=== PATIENT | male | born 1955 | race African-American/Black ===

== ENCOUNTER 2019-11-06 10:38 | Inpatient (IN) | payer OTHER ==
[~2019-11-06] VITALS: Ht 175.3 cm; Wt 106.6 kg
[2019-11-06] MEDS ORDERED: BLOOD SUGAR DIAGNOSTIC 1 EACH STRIP IN ONE (14:00)
[2019-11-06] MEDS ORDERED: ZOLPIDEM TARTRATE 10 MG TABLET PO PRN (14:00)
[2019-11-06] MEDS ORDERED: BENZTROPINE MESYLATE (1 MG) 1 MG TABLET PO PRN (14:00)
[2019-11-06] MEDS ORDERED: MAG HYDROX/AL HYDROX/SIMETH 30 ML UDC PO PRN (14:00)
[2019-11-06] MEDS ORDERED: IBUPROFEN 200 MG TABLET PO PRN (14:00)
[2019-11-06] MEDS ORDERED: ACETAMINOPHEN 325 MG TABLET PO PRN (14:00)
[2019-11-06] MEDS ORDERED: LORAZEPAM 0.5 MG TABLET PO PRN (14:00)
[2019-11-06] MEDS ORDERED: MAGNESIUM HYDROXIDE 30 ML UDC PO PRN (14:00)
[2019-11-06] MEDS ORDERED: PROPRANOLOL HCL 10 MG TABLET PO PRN (14:00)
--- NOTE | 2019-11-06 15:00 | NUR ---
RN ADMITTING NOTES ADMITTED A 64 Y/O MALE TO UNIT AMBULATORY. A/O X3. ABLE TO MAKE NEEDS KNOWN, NO SIGNS OF DISTRESS NOTED AT THIS TIME. PATIENT ORIENTED TO ROOM, UNIT AND STAFF. ON ROOM AIR, TOLERATING WELL. V/S TAKEN, STABLE AND RECORDED. REFUSED PHYSICAL ASSESSMENT AND PICTURES. ALSO REFUSED BLOOD SUGAR CHECK. SAFETY MEASURES IN PLACE, BED PLACE IN LOWEST LOCKED POSITION WITH SIDE RAILS UP X2. CALL LIGHT WITHIN REACH. WILL CONTINUE TO MONITOR.
[2019-11-06] MEDS ORDERED: HYDR-3980 MT (15:15)
[2019-11-06] MEDS ORDERED: OMEG100036 PO (15:15)
[2019-11-06] MEDS ORDERED: HYDR25TA4 PO (15:15)
[2019-11-06] MEDS ORDERED: CLON1TAB12 PO (15:15)
[2019-11-06] MEDS ORDERED: AMLO5TAB9 PO (15:15)
[2019-11-06] MEDS ORDERED: ASPI-992 PO (15:15)
--- NOTE | 2019-11-06 15:20 | NUR ---
RN NOTES PATIENT WAS TESTED FOR COVID 19, SPECIMEN SENT TO LAB.
--- NOTE | 2019-11-06 15:20 | NUR ---
RN NOTES PATIENT HAVE ALL HIS BELONGINGS AT BEDSIDE, EXPLAINED THAT HOSPITAL AND HOSPITAL STAFF IS NOT RESPONSIBLE FOR LOSS OF PERSONAL CLOTHING AND OR VALUABLES. PATIENT AGREED. CHARGE NURSE MADE AWARE. WILL CONTINUE TO MONITOR.
[2019-11-06 16:00] VITALS: BP 138/72
[2019-11-06 16:03] LABS: CALCIUM, SERUM 9.4 mg/dL (8.5-10.1); CREATININE 1.1 mg/dL (0.6-1.3); POTASSIUM 3.1 mmol/L (3.5-5.1)
[2019-11-06 16:25] LABS: BASOPHILS # (AUTO) 0.1 /CMM (0.0-0.2); BASOPHILS % (AUTO) 1.1 % (0.0-2.0); EOSINOPHILS % (AUTO) 5.3 % (0.0-6.0); HEMATOCRIT 37 % (39-51); HEMOGLOBIN 11.7 g/dL (13.5-17.5); LYMPHOCYTES # (AUTO) 1.6 /CMM (0.8-4.8); LYMPHOCYTES % (AUTO) 26.8 % (20.0-44.0); MEAN CORPUSCULAR HGB CONC 32 g/dl (31.0-36.0); MEAN CORPUSCULAR VOLUME 95 fL (80-96); MONOCYTES # (AUTO) 0.4 /CMM (0.1-1.30); MONOCYTES % (AUTO) 6.7 % (2.0-12.0); NEUTROPHILS # (AUTO) 3.6 /CMM (1.8-8.9); NEUTROPHILS % (AUTO) 60.1 % (43.0-81.0); PLATELET COUNT (AUTO) 189 /CMM (150-450); RED BLOOD CELL COUNT(AUTO) 3.89 MIL/uL (4.5-6.0)
--- NOTE | 2019-11-06 20:07 | NUR ---
GPS/OCCUPATIONAL THERAPY AIDE NURSING NOTES: PT. IN HIS ROOM AWAKE. NO DISTRESS OR AGITATION NOTED. QUIET AND CALM. COOPERATIVE. NO C/O PAIN OR DISCOMFORT. SAFETY ENVIRONMENT OBSERVED AT ALL TIMES. WILL CONTINUE TO MONITOR Q 15 MIN FOR SAFETY AND BEHAVIOR.
[2019-11-06 21:05] VITALS: BP 153/96
[2019-11-06 21:26] LABS: C-REACTIVE PROTEIN 2.5 mg/dL (0.0-0.9)
[2019-11-06 21:48] LABS: THYROID STIMULATING HORMONE 1.388 uIU/mL (0.358-3.74)
[2019-11-07] MEDS: FISH OIL PO SCH (08:00)
[2019-11-07] MEDS: HCTZ 25 MG PO SCH (08:00)
[2019-11-07] MEDS: AMLODIPINE 5 MG PO SCH (08:00)
[2019-11-07] MEDS: ASPIRIN 325 MG PO SCH (08:00)
--- NOTE | 2019-11-07 08:54 | NUR ---
GPS RN NOTE: PT LEFT THE UNIT TO MS DEB
--- NOTE | 2019-11-07 09:00 | NUR ---
MS RN NOTES RECEIVED PATIENT FROM GPS. ALERT AND ORIENTED X4. NO SOB. AMBULATORY WITH STEADY GAIT. DENIES ANY C/O PAIN NOR DISCOMFORT AT THIS TIME. FOR CLINICAL TRIALS. NO BEHAVIOR OBSERVED. ORIENTED TO ROOM, CALL LIGHT, ROOMMATE AND UNIT. BED IN LOWEST POSITION ,LOCKED. CALL LIGHT WITHIN REACH.
[2019-11-07 16:00] VITALS: BP 140/76
--- NOTE | 2019-11-07 19:00 | NUR ---
MS RN NOTES PATIENT IN BED RESTING COMFORTABLY. NO SOB. AMBULATORY WITH STEADY GAIT USING ROLLATOR. DENIES ANY C/O PAIN NOR DISCOMFORT AT THIS TIME. REMAIN ON CLINICAL TRIALS. NO BEHAVIOR OBSERVED. BED IN LOWEST POSITION ,LOCKED. CALL LIGHT WITHIN REACH. IN NO APPARENT DISTRESS.
--- NOTE | 2019-11-07 19:15 | NUR ---
MS RN OPENING NOTES: RECEIVED PATIENT IN THE WHEELCHAIR, A/O X4, PATIENT IS HAPPY AND VERY TALKATIVE. REMINDED PATIENT TO TELL STAFF BEFORE GOING DOWNSTAIRS, PATIENT VERBALIZED UNDERSTANDING.
--- NOTE | 2019-11-07 19:58 | NUR ---
PATIENT WENT DOWN ON THE WHEELCHAIR ACCOMPANIED BY THE ROOMMATE.
[2019-11-07 20:00] VITALS: BP 118/63
--- NOTE | 2019-11-07 21:10 | NUR ---
PER EDWIGE KLINE PATIENT CAME BACK FROM DOWNSTAIRS FEW MINUTES AGO.
--- NOTE | 2019-11-08 05:06 | NUR ---
PATIENT WENT DOWNSTAIRS BY WHEELCHAIR ACCOMPANIED BY HIS ROOMMATE.
--- NOTE | 2019-11-08 05:30 | NUR ---
PATIENT CAME BACK FROM DOWNSTAIRS.
--- NOTE | 2019-11-08 06:43 | NUR ---
MS RN CLOSING NOTES: PATIENT IN BED, AWAKE A/O X4. NO SOB NOTED. NO COMPLAIN OF PAIN. RESTED THROUGHOUT THE NIGHT. CALL LIGHT WITHIN REACH. BED IN LOWEST AND LOCKED POSITION.
[2019-11-08 08:00] VITALS: BP 116/63
--- NOTE | 2019-11-08 08:00 | NUR ---
MS RN OPENING NOTES Received Patient awake and resting in bed. A/O x 4. VS stable with no acute distress. Breathing even and unlabored on room air with no respiratory distress. Denies pain. No signs and symptoms of pain. No IV access, MD aware. Safety precautions in place. Bed locked and set to lowest position with side rails x 2 up. All needs rendered at this time. Call light within reach. Will continue to monitor.
[2019-11-08] MEDS: ASPIRIN 325 MG PO SCH (08:50)
[2019-11-08] MEDS: AMLODIPINE 5 MG PO SCH (08:50)
[2019-11-08] MEDS: FISH OIL PO SCH (08:50)
[2019-11-08] MEDS: HCTZ 25 MG PO SCH (08:51)
[2019-11-08 16:00] VITALS: BP 135/97
--- NOTE | 2019-11-08 19:50 | NUR ---
MS RN CLOSING NOTES Patient awake and resting in bed. A/O x 4. VS stable with no acute distress. Breathing even and unlabored on room air with no respiratory distress. Denies pain. No signs and symptoms of pain. No IV access, MD aware. Safety precautions in place. Bed locked and set to lowest position with side rails x 2 up. All needs rendered at this time. Call light within reach. Will endorse plan of care to oncoming shift.
--- NOTE | 2019-11-08 20:00 | NUR ---
MS/RN OPENING NOTE Patient A/O x4. PERRLA. VSS. Patient denies pain. Breathing even, clear, unlabored. On room air. No SOB or acute distress. Abdomen round, soft, non-tender. Appetite is adequate. Able to move extremities well, strength adequate. Skin warm, pink, dry, appropriate for ethnicity. Bed in low position, wheels locked, side rails up x2, call light within reach.
[2019-11-08 20:44] VITALS: BP 138/74
[2019-11-09 00:28] VITALS: BP 119/95
--- NOTE | 2019-11-09 06:10 | NUR ---
MS/RN CLOSING NOTE Patient asleep in bed. A/O x4. Breathing even, clear, unlabored. No signs of SOB or acute distress. On room air. Patient denies pain. Skin warm, pink, dry, appropriate for ethnicity. Bed in low position, wheels locked, side rails up x2, call light within reach. Will endorse to oncoming nurse.
--- NOTE | 2019-11-09 07:58 | NUR ---
MS RN OPENING NOTES Received Patient awake and resting in bed. A/O x 4. VS stable with no acute distress. Breathing even and unlabored on room air with no respiratory distress. Denies pain. No signs and symptoms of pain. No IV access, MD aware. Safety precautions in place. Bed locked and set to lowest position with side rails x 2 up. All needs rendered at this time. Call light within reach. Will continue to monitor. Addendum: 11/09/19 at 0827 by FRANKLIN LATIF RN DISREGARD NOTE, WRONG USER
[2019-11-09 08:06] VITALS: BP 134/86
[2019-11-09] MEDS: AMLODIPINE 5 MG PO SCH (08:18)
[2019-11-09] MEDS: ASPIRIN 325 MG PO SCH (08:19)
[2019-11-09] MEDS: HCTZ 25 MG PO SCH (08:19)
[2019-11-09] MEDS: FISH OIL PO SCH (08:19)
[2019-11-09 16:00] VITALS: BP 135/93
--- NOTE | 2019-11-09 16:34 | NUR ---
MS RN NOTES Patient refused Risperdal 1mg PO. Patient stated "What is happening to me is real! I don't need to take an antipsychotic!" Explained risks and benefits to Patient. Patient still refused.
[2019-11-09 19:53] VITALS: BP 145/90
--- NOTE | 2019-11-09 20:00 | NUR ---
MS/RN OPENING NOTE Patient A/O x4, very pleasant. Breathing even, unlabored, clear bilaterally. Skin warm, pink, dry, appropriate for ethnicity. No signs of SOB or acute distress. Pt denies pain at this time. Able to move extremities well, ambulates via wheelchair. No IV access , MD aware. Bed in low position, wheels locked, side rails up x2, call light within reach.
[2019-11-09 20:43] VITALS: BP 145/90
--- NOTE | 2019-11-10 06:48 | NUR ---
MS/RN CLOSING NOTE Patient came back to the floor after smoking. A/O x4. Breathing even, clear, unlabored. No signs of SOB or acute distress. On room air. Patient denies pain. Skin warm, pink, dry, appropriate for ethnicity. Bed in low position, wheels locked, side rails up x2, call light within reach. Will endorse to oncoming nurse.
--- NOTE | 2019-11-10 07:32 | NUR ---
RN NOTES Received Patient in bed resting comfortably in moderate high back rest. A/O x4. Breathing even, clear, unlabored. No signs of SOB or acute distress noted at this time. On room air. Safety measures in place, Bed in low position, wheels locked, side rails up x2, call light within reach. Will continue to monitor.
[2019-11-10 08:00] VITALS: BP 135/97
[2019-11-10] MEDS: FISH OIL PO SCH (08:39)
[2019-11-10] MEDS: ASPIRIN 325 MG PO SCH (08:39)
[2019-11-10] MEDS: HCTZ 25 MG PO SCH (08:40)
[2019-11-10] MEDS: AMLODIPINE 5 MG PO SCH (08:40)
[2019-11-10 16:00] VITALS: BP 159/98
--- NOTE | 2019-11-10 18:55 | NUR ---
RN NOTES Patient in bed resting comfortably in moderate high back rest. A/O x4. Breathing even, clear, unlabored. No signs of SOB or acute distress noted throughout the shift. On room air. Safety measures in place, Bed in low position, wheels locked, side rails up x2, call light within reach. Will endorse to car shifter nurse for [place].
--- NOTE | 2019-11-10 20:22 | NUR ---
RECEIVED MR. LANDIN SITTING IN HIS BED SNACKING ON FOOD ALERT AND ORIENTATED. SMILES WHEN SPOKEN TO
[2019-11-10 20:24] VITALS: BP 136/100
[2019-11-10] MEDS: ARIPIPRAZOLE 5 MG TABLET PO SCH (21:43)
--- NOTE | 2019-11-11 06:13 | NUR ---
ENDING NOTES: WENT TO BED ABOUT 2200 STILL ASLEEP AT 6AM. PATIENT PLEASENT AND FRIENDLY. QUICK TO SMILE AND HE COMMENT "I TRY TO BE NICE TO EVERYONE", AFTER I TOLD HIM HE HAD A GREAT SMILE AND MADE ME LAUGH. NO COMPLAINTS THIS 12 HOURS. DID NOT COMPLAIN OF HEARING VOICES. WHEN CHECKED ON HE WAS SLEEPING PEACEFULLY
[2019-11-11 08:00] VITALS: BP 128/74
[2019-11-11] MEDS: HCTZ 25 MG PO SCH (08:33)
[2019-11-11] MEDS: AMLODIPINE 5 MG PO SCH (08:33)
[2019-11-11] MEDS: ASPIRIN 325 MG PO SCH (08:33)
[2019-11-11] MEDS: FISH OIL PO SCH (08:33)
[2019-11-11 16:16] VITALS: BP 134/81
--- NOTE | 2019-11-11 18:32 | NUR ---
RN NOTES Patient in bed resting comfortably in moderate high back rest. A/O x4. Breathing even, clear, unlabored. No signs of SOB or acute distress noted throughout the shift. On room air. Safety measures in place, Bed in low position, wheels locked, side rails up x2, call light within reach. Will endorse to weight shifter nurse for [place].
--- NOTE | 2019-11-11 19:15 | NUR ---
RN OPENING NOTES Received patient awake, sitting on bed using his laptop. Pt denies any discomfort at this time. Pt is independent in attending ADLs. Discussed the POC for the night, pt verbalized understanding. Call light within easy reach. Will continue to monitor accordingly.
[2019-11-11 20:00] VITALS: BP 105/69
[2019-11-11] MEDS: ARIPIPRAZOLE 5 MG TABLET PO SCH (21:54)
--- NOTE | 2019-11-12 06:48 | NUR ---
RN CLOSING NOTES Pt noted going to smoke by self. No new complaints made. All nursing needs attended, due meds given as ordered. Endorsed.
--- NOTE | 2019-11-12 07:18 | NUR ---
MS RN NOTES PATIENT IN BED ALERT ORIENTED X 4. NO ACUTE DISTRESS NOTED. BREATHING UNLABORED. SAFETY MEASURES IN PLACE. CALL LIGHT WITHIN REACH. WILL CONTINUE TO MONITOR ACCORDINGLY.
--- NOTE | 2019-11-12 07:20 | NUR ---
MS BENY NOTES PATIENT IN BED ALERT ORIENTED X 4. NO ACUTE DISTRESS NOTED. BREATHING UNLABORED. IV ACCESS PATENT AND INTACT, NO REDNESS, NO SWELLING NOTED. SAFETY MEASURES IN PLACE. CALL LIGHT WITHIN REACH. WILL CONTINUE TO MONITOR ACCORDINGLY. Addendum: 11/12/19 at 1038 by RAMON QUILES RN disregard above notes, wrong patient
[2019-11-12 08:00] VITALS: BP 140/79
[2019-11-12] MEDS: ASPIRIN 325 MG PO SCH (08:35)
[2019-11-12] MEDS: HCTZ 25 MG PO SCH (08:35)
[2019-11-12] MEDS: FISH OIL PO SCH (08:36)
[2019-11-12] MEDS: AMLODIPINE 5 MG PO SCH (08:36)
[2019-11-12 18:45] VITALS: BP 142/74
--- NOTE | 2019-11-12 19:00 | NUR ---
MS RN NOTES PATIENT IN BED ALERT ORIENTED X 4. NO ACUTE DISTRESS NOTED. BREATHING UNLABORED. NEEDS ATTENDED AND ANTICIPATED. KEPT COMFORTABLE. SAFETY MEASURES IN PLACE. CALL LIGHT WITHIN REACH. WILL ENDORSE TO NIGHT FOR CONTINUITY OF CARE
[2019-11-12 20:00] VITALS: BP 130/79
[2019-11-12] MEDS: ARIPIPRAZOLE 5 MG TABLET PO SCH (21:48)
--- NOTE | 2019-11-13 06:46 | NUR ---
MS RN NOTES AWAKE & RESPONSIVE. NOT IN ANY DISTRESS. NO SOB NOTED. DENIES ANY PAIN OR DISCOMFORT AT THIS TIME. SLEPT FOR 8 HOURS MONITORED ACCORDINGLY. CALL LIGHT WITHIN REACH. BED IN LOWEST POSITION. SR UP X 2 FOR SAFETY. WILL ENDORSE TO NEXT SHIFT.
[2019-11-13 08:00] VITALS: BP 142/82
[2019-11-13] MEDS: HCTZ 25 MG PO SCH (08:52)
[2019-11-13] MEDS: AMLODIPINE 5 MG PO SCH (08:53)
[2019-11-13] MEDS: ASPIRIN 325 MG PO SCH (08:54)
[2019-11-13] MEDS: FISH OIL PO SCH (08:54)
[2019-11-13 18:47] VITALS: BP 148/98
[2019-11-13 20:00] VITALS: BP 123/76
[2019-11-13] MEDS: ARIPIPRAZOLE 5 MG TABLET PO SCH (21:17)
[2019-11-14 08:00] VITALS: BP 131/86
[2019-11-14] MEDS: HCTZ 25 MG PO SCH (08:40)
[2019-11-14] MEDS: ASPIRIN 325 MG PO SCH (08:41)
[2019-11-14] MEDS: FISH OIL PO SCH (08:41)
[2019-11-14] MEDS: AMLODIPINE 5 MG PO SCH (08:41)
--- NOTE | 2019-11-14 09:28 | NUR ---
MS RN NOTES RECEIVED NEW ORDER FROM DR ROSALIE VAZQUEZ PATIENT FOR DISCHARGE HOME SELF CARE AND FOR FOLLOW UP WITH DR ROSALIE VAZQUEZ OFFICE, ORDERS CLARIFIED AND READ BACK, NOTED AND CARRIED OUT.
--- NOTE | 2019-11-14 10:20 | NUR ---
MS RN NOTES PATIENT DISCHARGE HOME WITH STABLE VITAL SIGNS, ALERT ORIENTED X 4. NO ACUTE DISTRESS NOTED. BREATHING UNLABORED. DISCHARGE INSTRUCTIONS GIVEN TO THE PATIENT, VERBALIZED UNDERSTANDING. ALL BELONGINGS ACCOUNTED FOR. SKIN IS INTACT. PICKED UP BY SAL FROM DR TABARES OFFICE WITH ALL BELONGINGS IN STABLE CONDITION.
[2019-11-19] MEDS ORDERED: LORAZEPAM 1 MG TABLET PO PRN (12:00)
[2019-11-19] MEDS ORDERED: [UNRECOGNIZED DRUG - OTHER] PO SCH (22:00)
[2019-11-21] MEDS ORDERED: LORAZEPAM 1 MG TABLET PO PRN (12:00)
[2019-11-26] MEDS ORDERED: LORAZEPAM 1 MG TABLET PO PRN (12:00)
[2019-12-03] MEDS ORDERED: LORAZEPAM 1 MG TABLET PO PRN (12:00)
[2019-12-10] MEDS ORDERED: LORAZEPAM 1 MG TABLET PO PRN (12:00)
[2019-12-17] MEDS ORDERED: LORAZEPAM 1 MG TABLET PO PRN (12:00)
[2019-12-24] MEDS ORDERED: LORAZEPAM 1 MG TABLET PO PRN (12:00)
[2019-12-31] MEDS ORDERED: LORAZEPAM 1 MG TABLET PO PRN (12:00)
== END 2019-11-14 10:20 | disposition home or self-care (01) | DRG 951 ==
LOC: GPS 13:39 → MEDOV2 14:23 → MEDSG2 11-07 09:02
PROVIDERS: ADMIT Psychiatry & Neurology Psychiatry; ATTEND Psychiatry & Neurology Psychiatry
DX: Z00.6 Encounter for examination for normal comparison and control in clinical research program (principal); B19.20 Unspecified viral hepatitis C without hepatic coma; F20.0 Paranoid schizophrenia; I10 Essential (primary) hypertension; Z85.46 Personal history of malignant neoplasm of prostate; M17.0 Bilateral primary osteoarthritis of knee; I45.10 Unspecified right bundle-branch block; Z79.899 Other long term (current) drug therapy
CPT/HCPCS: 36415; 80048-TC; 80061-TC; 84146; 84443-TC; 85025-TC; 86140-TC; 87081-TC; G0378